=== PATIENT | female | born 1950 | race Caucasian/White ===

== ENCOUNTER → 2021-07-14 15:13 | Outpatient (CLI) | payer MEDICARE, SELFPAY ==
--- NOTE | ~2021-07-14 | XR_ITS ---
XR shoulder RT min 2V DATE: 07/14/2021 15:40 INDICATION: Right shoulder pain TECHNIQUE: 4 views COMPARISON: None FINDINGS: There is diffuse osteopenia. No fracture or dislocation, periosteal reaction or bone destruction. There is calcification at the in sertion site of the rotator cuff which may indicate calcific tendinitis. IMPRESSION: Osteopenia Ossification near insertion of rotator cuff, which may indicate rotator cuff calcific tendinitis Reviewed, dictated and finalized at location A. IMPRESSION: Osteopenia Ossification near insertion of rotator cuff, which may indicate rotator cuff ca lcific tendinitis
== END ==
PROVIDERS: PCP Physician Assistant; Visit Provider Physician Assistant
DX: M85.811 Other specified disorders of bone density and structure, right shoulder (principal)
CPT/HCPCS: 73030

== ENCOUNTER → 2021-08-04 15:20 | Outpatient (CLI) | payer MEDICARE, SELFPAY ==
--- NOTE | ~2021-08-04 | MM_ITS ---
EXAMINATION: MM screening [facility] BI w uriel HISTORY: Screening mammogram TECHNIQUE: Craniocaudal and mediolateral oblique 3-D tomosynthesis images were obtained and synthetic 2-D images were generated. CAD analysis was submitted and interpreted. COMPARISON: 01/07/2011, 06/17/2009 BREAST PARENCHYMAL COMPOSITION: The breasts are almost entirely fatty. FINDINGS: There is no evidence of suspicious mass, calcification, or architectural distortion to sugg est malignancy in either breast. There has been no suspicious interval change. IMPRESSION: 1. No mammographic evidence of malignancy. 2. Recommend routine screening mammography in one year. BI-RADS Category 1: Negative Reviewed, dictated and finalized at location A.
== END ==
PROVIDERS: PCP Physician Assistant; Visit Provider Physician Assistant
DX: Z12.31 Encounter for screening mammogram for malignant neoplasm of breast (principal)
CPT/HCPCS: 77063; 77067

== ENCOUNTER 2021-09-06 10:00 | Emergency (ER) | payer MEDICARE, SELFPAY ==
--- NOTE | 2021-09-06 10:13 | ED.FEMALEGU ---
HPI - Female Genitourinary General Chief complaint: Urogenital-Female Stated complaint: back pain,frequent urination Time Seen by Provider: 09/06/21 10:19 Source: patient, RN notes reviewed and old records reviewed Mode of arrival: ambulatory Limitations: no limitations History of Present Illness HPI Narrative: 70-year-old female who presents to [facility] with complaints of lower back pain with urgency, frequency for the past 1.5 weeks. Patient states that she was treated on August 03 with Cipro for an urinary tract infection. Patient denies any burning or pain with urination or any suprapubic discomfort. Patient denies any fevers, chills or sweats, denies any vaginal discharge or any vaginal itching or odor. She reports that she has not taken any AZO for her symptoms. MD elicited complaint: back pain and other (urgency and frequency of urination) Related Data Home Medications Medication Instructions Recorded Confirmed atorvastatin 20 mg PO DAILY 09/06/21 09/06/21 blood sugar diagnostic [OneTouch 09/06/21 09/06/21 Ultra Test] blood-glucose meter [OneTouch 09/06/21 09/06/21 Ultra2 Meter] glipizide 10 mg PO DAILY 09/06/21 09/06/21 lancets [ebridgeTouch UltraSoft 09/06/21 09/06/21 Lancets] losartan 25 mg PO DAILY 09/06/21 09/06/21 metformin 500 mg PO BID 09/06/21 09/06/21 pen needle, diabetic [Droplet Pen 09/06/21 09/06/21 Needle] Allergies Allergy/AdvReac Type Severity Reaction Status Date / Time No Known Allergies Allergy Verified 09/06/21 10:10 Review of Systems Review of Systems: CONSTITUTIONAL: Denies fever, chills, or sweats. EYES: Denies visual changes, redness, or discharge. ENT: Denies rhinorrhea, congestion, sore throat, or otalgia. CARDIOVASCULAR: Denies chest pain, palpitations, or edema. RESPIRATORY: Denies cough or dyspnea. GASTROINTESTINAL: Denies abdominal pain, nausea, vomiting, or diarrhea. GENITOURINARY:No reported dysuria or hematuria, positive for urinary frequency and urgency SKIN: Denies rash or itching. MUSCULOSKELETAL: positive for Lower back pain, denies any joint pain, or myalgia. NEUROLOGIC: Denies headache, numbness, or weakness. PSYCHIATRIC: Denies anxiety or depression. All systems reviewed & are unremarkable except as noted in HPI and below PMFSH Past Medical History Medical History (Updated 09/07/21 @ 00:02 by Elian Rodriguez) Diabetes Elevated cholesterol Hypertension Surgical History Surgical History (Updated 09/06/21 @ 10:28 by Bertha Celaya NP) H/O arthroscopy of left knee torn meniscus H/O: hysterectomy History of appendectomy Hx of cholecystectomy Family History Family History (Updated 09/06/21 @ 10:44 by Bertha Celaya NP) Mother Hypertension Cerebrovascular accident Brain tumor Sibling Carcinoma of colon Social History Social History (Updated 09/06/21 @ 10:37 by Bertha Celaya NP) Smoking status: Former smoker Additional smoking assessment comments: quit 30 years ago Alcohol intake: current Alcohol use details: rare social Substance use: never Living arrangements: with friend(s) Gender identity (if verbalized by the patient): Female Comments At time of signature, agree with nursing past medical, surgical, social and family history. There is no relevant family history pertinent to the presenting complaint Exam Narrative: GENERAL: Well-appearing, well-nourished, and in no acute distress. HEAD: Normocephalic, atraumatic. EYES: PERRLA and EOMI. ENT: Nares clear, no rhinorrhea or epistaxis. Mucous membranes moist.TM's normal with good light reflex, throat pink with no lesions or exudates, no tonsil enlargement. NECK: Supple. no lymphadenopathy CHEST: Clear to auscultation. No respiratory distress.SAO2 97% on room air HEART: Regular rate and rhythm. No murmur heard. Normal peripheral pulses. ABDOMEN: Soft, nontender to palpation, nondistended, normal active bowel sounds.positive for low back pain EXTREMIT
[2021-09-06 10:22] VITALS: BP 152/84; PULSE 94; RESP 18; TEMP 35.9; O2SAT 97
== END 2021-09-06 10:45 | disposition home or self-care (01) ==
PROVIDERS: Emergency Provider Registered Nurse; PCP Physician Assistant
DX: N39.0 Urinary tract infection, site not specified (principal); M54.50 Low back pain, unspecified; Z87.891 Personal history of nicotine dependence; E11.9 Type 2 diabetes mellitus without complications; E78.00 Pure hypercholesterolemia, unspecified; I10 Essential (primary) hypertension
CPT/HCPCS: 81003; 87086; 87088; 99213; G0463

== ENCOUNTER → 2021-10-22 01:10 | Outpatient (CLI) | payer MEDICARE, SELFPAY ==
[2021-10-22 19:19] LABS: SARS-CoV-2 RNA PCR Negative
== END ==
PROVIDERS: PCP Physician Assistant; Visit Provider Family Medicine
DX: J06.9 Acute upper respiratory infection, unspecified (principal); Z20.822 Contact with and (suspected) exposure to COVID-19
CPT/HCPCS: C9803; U0003; U0005

== ENCOUNTER → 2023-06-30 11:55 | Outpatient (CLI) | payer MEDICARE, SELFPAY ==
--- NOTE | ~2023-06-30 | MM_ITS ---
EXAMINATION: MM screening [facility] BI w uriel HISTORY: Screening mammogram TECHNIQUE: Craniocaudal and mediolateral oblique 3-D tomosynthesis images were obtained and synthetic 2-D images were generated. CAD analysis was submitted and interpreted. COMPARISON: 08/04/2021, 01/07/2011 BREAST PARENCHYMAL COMPOSITION: The breasts are almost entirely fatty. FINDINGS: No suspicious mass, calcification, or architectural distortion are identified in either luh ast to suggest malignancy. There has been no suspicious interval change. IMPRESSION: 1. No mammographic evidence of malignancy. 2. Recommend routine screening mammography in one year. BI-RADS Category 1: Negative Reviewed, dictated and finalized at location B.
== END ==
PROVIDERS: PCP Physician Assistant; Visit Provider Physician Assistant
DX: Z12.31 Encounter for screening mammogram for malignant neoplasm of breast (principal)
CPT/HCPCS: 77063; 77067

== ENCOUNTER 2023-12-25 16:36 | Outpatient (CLI) | payer MEDICARE, SELFPAY ==
--- NOTE | ~2023-12-25 | XR_ITS ---
EXAMINATION: SACRUM/COCCYX DATE: 12/25/2023 16:54 INDICATION: Sacrococcygeal disorder TECHNIQUE: Three views sacrum/coccyx FINDINGS: 10/18/2004 There is no displaced fracture of the sacrum. The coccyx demonstrates overall normal morphology with out acute angulation.There is severe lower lumbar spondylosis partially visualized, with progression since prior study. IMPRESSION: 1. No acute displaced osseous abnormality of the sacrum. Suspicion for occult or nondisplaced sacral fracture can either be evaluated with CT or MRI. 2. Grossly normal morphology to the coccyx without acute angulation. However, due to the wide range of normal variation of the coccyx, acute injury would be best evaluated by clinical examination and patient's symptoms. 3: Severe lower lumbar spondylosis. Reviewed, dictated and finalized at location A. FINISHER SEAMSTRESS
== END 2023-12-25 16:37 | disposition home or self-care (01) ==
LOC: ANHIMG 16:39
PROVIDERS: PCP Family Medicine; Visit Provider Physician Assistant
DX: M53.3 Sacrococcygeal disorders, not elsewhere classified (principal); M47.896 Other spondylosis, lumbar region
CPT/HCPCS: 72220

== ENCOUNTER 2023-12-26 06:01 | Inpatient (IN) | payer MEDICARE, SELFPAY ==
[2023-12-26] VITALS (22 sets, daily range): BP systolic 106–161; BP diastolic 51–89; PULSE 62–101; RESP 13–24; TEMP 36.2–36.7; O2SAT 92–98
--- NOTE | ~2023-12-26 | CT_ITS ---
Non-contrast Head CT History: Status post fall Technique: Axial non-contrast imaging of the brain was performed. Dose reduction technique was used on this scan by utilizing automated exposure control and iterative reconstruction technique. The dose -length product (DLP) was 605.33 mGy-cm. Findings: There is no evidence of intracranial hemorrhage, mass lesion, or acute infarct. Brain par enchyma appears normal. The ventricles and subarachnoid spaces are normal in size. The calvarium ap pears normal. The visualized paranasal sinuses and mastoid air cells are clear. Impression: No significant abnormality seen. Reviewed, dictated and finalized at location . LOADER Impression: No significant abnormality seen.
--- NOTE | ~2023-12-26 | XR_ITS ---
EXAMINATION: XR fluoroscopy no charge INDICATION: L3-4 microdiscectomy TECHNIQUE: A single intraoperative fluoroscopic image is submitted for review. Total fluoroscopic aylin e was 13.3 seconds. COMPARISON: None available FINDINGS: Fluoroscopic image demonstrates surgical instruments posteriorly at the level of L3-4. Plea se refer to procedure note for full details. IMPRESSION: 1. Please refer to procedure note for full details. Reviewed, dictated and finalized at location F. ROPOLOGY DEPARTMENT CHAIR
--- NOTE | ~2023-12-26 | CT_ITS ---
CT Facial Bones and Cervical Spine Clinical Indication: Status post fall Technique: Contiguous axial scans were obtained through the facial bones and cervical spine followed by coronal and sagittal reconstructions. Dose reduction technique was used on this scan by utilizing automated exposure control and iterative reconstruction technique. The dose-length product (DLP) was 654.31 mGy-cm. Findings: CT facial bones: No fractures are identified. The visualized paranasal sinuses are clear. Intraorbita l soft tissues appear normal. CT cervical spine: No fractures or subluxation. There is moderate degenerative disc change throughou t the cervical spine. There are multilevel minimal disc ossify complexes. There is left neural forami nal narrowing at C5-C6. No prevertebral soft tissue swelling. Impression: No fracture is seen in the facial bones. No fracture or subluxation of the cervical spine. Reviewed, dictated and finalized at [facility]. O WELDER Impression: No fracture is seen in the facial bones. No fracture or subluxation of the cervical spine.
--- NOTE | ~2023-12-26 | MR_ITS ---
EXAMINATION: MR lumbar spine wo/w con DATE: 12/27/2023 07:57 INDICATION: Bilateral lower extremity neuropathy and radiculopathy. TECHNIQUE: Magnetic resonance imaging (MRI) of the lumbar spine was performed without and with 17 mL MultiHance intravenous contrast. COMPARISON: Lumbar spine MRI 10/19/2004, CT 12/26/2023 FINDINGS: There is 5 degrees dextrocurvature of lumbar spine. There is mild chronic anterior wedging of T11 and T12 vertebral bodies. There is mildly decreased disc height at L2-L3 and L3-L4 and severel y decreased disc height at L4-L5 and L5-S1. The distal spinal cord signal intensity is normal. The co nus medullaris is at T12-L1. The following disc levels are specifically discussed: L1-L2: The disc is bulging and has an annular fissure. There is severe right and moderate left facet joint osteoarthritis. There is mild right neural foraminal stenosis. There is mild central canal sten osis. L2-L3: The disc is bulging and has an annular fissure. There is severe bilateral facet joint osteoart hritis. There is moderate bilateral neural foraminal stenosis. There is mild central canal stenosis. L3-L4: The disc is bulging with superimposed large left central extrusion with 19 mm inferior extensi on to the infrapedicular level of L4. There is severe bilateral facet joint osteoarthritis. There is mild right and moderate left neural foraminal stenosis. There is severe central canal stenosis. L4-L5: The disc is bulging as an annular fissure. There is severe bilateral facet joint osteoarthriti s. There is mild right and moderate left neural foraminal stenosis. There is mild central canal steno sis. There is moderate stenosis of right lateral recess. L5-S1: The disc is bulging and has an annular fissure. There is severe bilateral facet joint osteoart hritis. There is moderate right and mild left neural foraminal stenosis. There is mild central canal stenosis. IMPRESSION: 1. Severe lumbar spondylosis. Reviewed, dictated and finalized at location A. NEERING SPECIALIST
--- NOTE | ~2023-12-26 | CT_ITS ---
Noncontrast CT scan of the thoracic and lumbar spine CLINICAL HISTORY: Status post fall TECHNIQUE: Axial noncontrast imaging of the thoracic and lumbar spine was performed. Sagittal and cor onal reformatted images were constructed. Dose reduction technique was used on this scan by utilizing automated exposure control and iterative reconstruction technique. The dose-length product (DLP) was 1772.65 mGy-cm. FINDINGS: No fracture or subluxation seen in the thoracic spine. Vertebral bodies maintain normal hei ght and alignment. There are scattered mild degenerative disc changes. No significant disc bulge or h erniation seen. No spinal canal stenosis or cord compression evident. Paravertebral soft tissues are unremarkable. No fracture and 21 spine. There is minimal grade 1 anterolisthesis of L2 over L3, and of L3 over L4. At L1-L2, there is minimal disc bulge and minimal facet arthropathy. No central canal stenosis or def inite neural foraminal narrowing. At L2-L3, there is moderate degenerative disc narrowing. There is mild disc bulge and minimal facet a rthropathy. No definite central canal stenosis. Neural foramina appear preserved. At L3-L4, there is moderate degenerative disc narrowing. Disc bulge and facet arthropathy are present , with mild to possibly moderate central canal stenosis. There is moderate bilateral neural foraminal narrowing. At L4-L5, there is severe degenerative disc narrowing. Disc bulge and facet arthropathy are present, probable mild central canal stenosis. There is severe left neural foraminal narrowing, and moderate t o severe right neural foraminal narrowing. At L5-S1, there is mild disc bulge and mild facet arthropathy. No elliot central canal stenosis. There is severe right neural foraminal narrowing, and mild left neural foraminal narrowing. Paravertebral soft tissues are unremarkable. Impression: No acute fracture. Minimal grade 1 retrolisthesis of L2 over L3, and of L3 over L4. Moderate degenerative spondylosis in the lumbar spine, as detailed above, especially at L3-L4 and L4- L5. Reviewed, dictated and finalized at [facility]. OL GUARD Impression: No acute fracture. Minimal grade 1 retrolisthesis of L2 over L3, and of L3 over L4. Moderate degenerative spondylosis in the lumbar spine, as detailed above, espec ially at L3-L4 and L4-L5.
[2023-12-26] MEDS: ACETAMINOPHEN 500 MG TABLET 1000 MG PO (06:26)
[2023-12-26] MEDS: KETOROLAC 30 MG/ML VIAL (*BKC) IM (08:07)
--- NOTE | 2023-12-26 08:12 | ED.FALL ---
HPI - Fall General Chief Complaint: Fall Stated Complaint: LOW BACK PAIN, FALL, DIFFICULTY AMBULATING Time Seen by Provider: 12/26/23 06:53 History of Present Illness HPI Narrative: 73-year-old female presenting to the emergency department for evaluation after having a ground level fall. Patient is being worked up for sciatica. Patient had [place] and Flexeril last night and when she got out of bed she felt her legs were weak and she had a fall. Patient did strike her chin but patient denies any loss of consciousness. Patient states her legs feel weak but denies any numbness. Patient is intact to sensation and has full range of motion of the legs. Related Data Home Medications Medication Instructions Recorded Confirmed atorvastatin 20 mg tablet 20 mg PO DAILY 09/06/21 12/26/23 blood sugar diagnostic (NeuMedicsTouch 09/06/21 12/25/23 Ultra Test strips) blood-glucose meter (NeuMedicsTouch 09/06/21 12/25/23 Ultra2 Meter) glipizide 10 mg tablet 10 mg PO DAILY 09/06/21 12/26/23 lancets ([employer] UltraSoft 09/06/21 12/25/23 Lancets) pen needle, diabetic 32 gauge x 09/06/21 12/25/23 5/32 (Droplet Pen Needle) citalopram 10 mg tablet 10 mg PO DAILY 12/26/23 12/26/23 dapagliflozin propanediol 10 mg 10 mg PO DAILY 12/26/23 12/26/23 tablet Allergies Allergy/AdvReac Type Severity Reaction Status Date / Time No Known Allergies Allergy Verified 12/25/23 15:54 Review of Systems Review of Systems: All systems reviewed & are unremarkable except as noted in HPI and below PMFSH Past Medical History Medical History (Updated 12/26/23 @ 16:48 by Nichole Diaz PA-C) Depression Hyperlipidemia Hypertension Obesity Type 2 diabetes mellitus Surgical History Surgical History (Updated 12/26/23 @ 16:44 by Nichole Diaz PA-C) History of appendectomy History of arthroscopy of left knee History of back surgery History of cholecystectomy History of hysterectomy Family History Family History Mother Hypertension Cerebrovascular accident Brain tumor Sibling Carcinoma of colon Social History Social History (Updated 12/26/23 @ 16:44 by Nichole Diaz PA-C) Social History: Surrogate medical decision maker: Mary Coates, niece. Code status: Full code. Smoking packs per day: 1 Smoking cigarettes per day: 20.0 Years smoked: 20 Smoking pack-years: 20.00 Smoking status: Former smoker Additional smoking assessment comments: quit 30 years ago Alcohol intake: current Alcohol use details: Rare alcohol use in moderation. Substance use: never Substance use type: does not use Do You Feel Safe in your Home?: Yes Lack of Transportation: No Lack of Food: Never True Current Housing: I Have Housing Concerned About Future Housing: No Difficulty Paying Gas/Electric Bills: No Difficulty Paying for Meds: No Currently Unemployed: No Education: High School Diploma/GED Difficulty w/ Childcare or Family Care: No Living arrangements: with friend(s) Occupation/Education: occupation Spiritual care concerns: No Exam Narrative: APPEARANCE: Uncomfortable appearing HEAD: normocephalic, atraumatic. EYES: PERRLA/EOMI, conjunctivae clear. NOSE: Normal no drainage EARS:TMS clear with good light reflex. THROAT: Pharynx clear, no exudate. NECK: Supple. No adenopathy, no masses. RESPIRATORY: Airway patent, respirations nonlabored. Clear to auscultation bilaterally, no rales, rhonchi, wheezing. CARDIOVASCULAR: Regular rate and rhythm without murmurs rubs or gallops. ABDOMINAL: Soft, nontender, nondistended, normal bowel sounds MUSCULOSKELETAL: Moves all extremities. Strength/ROM intact, No edema, No calf tenderness. NEURO: Intact neurologically to both lower extremities some decreased strength with plantar flexion on the left with no change sensation normal reflexes. No saddle anesthesia and intact rectal tone. Course Co
[2023-12-26] MEDS: HYDROcodone/acetaminophen (*CRX) 5-325 MG TABLET 1 TAB PO ×2 (09:57→21:27)
[2023-12-26] MEDS: CYCLOBENZAPRINE HCL 10 MG TABLET PO (10:14)
[2023-12-26 10:19] LABS: Basophils Percent Auto 0.4 % (0.2-1.2); Eosinophils Absolute Auto 0.1 K/mm3 (0-0.3); Eosinophils Percent Auto 0.8 % (0-4.4); Hematocrit 45.3 % (37.0-47.0); Hemoglobin 14.6 g/dL (12.0-15.0); Immature Granulocyte Absolute 0.02 K/mm3 (0.00-0.031); Immature Granulocyte Percent A 0.2 % (0-0.5); Lymphocytes Absolute Auto 2.26 K/mm3 (0.9-3.2); Lymphocytes Percent Auto 22.7 % (18.3-44.2); Mean Corpuscular HGB Conc 32.2 g/dl (32-36); Mean Corpuscular Hemoglobin 30.2 pg (26-34); Mean Corpuscular Volume 93.8 fl (80-100); Mean Platelet Volume 9.1 fl (7.4-10.4); Monocytes Absolute Auto 0.6 K/mm3 (0.1-0.6); Monocytes Percent Auto 5.5 % (2.6-8.5); Neutrophils Percent Auto 70.4 % (45.5-73.1); Platelet Count Result 181 k/mm3 (150-375); Red Blood Count 4.83 M/mm3 (4.2-5.4); Red Cell Distribution Width 12.6 % (11.5-14.5)
[2023-12-26 10:29] LABS: Alanine Aminotransferase 37 U/L (6-35); Albumin Level 3.9 g/dL (3.5-5.1); Alkaline Phosphatase 86 U/L (38-126); Anion Gap 5 mmol/L (8-16); Aspartate Amino Transferase 32 U/L (14-36); Bilirubin,Total 0.6 mg/dL (0.2-1.3); Blood Urea Nitrogen 14 mg/dL (7-17); Carbon Dioxide 26 mmol/L (22-30); Chloride 106 mmol/L (98-107); Estimated CRCL calculation 82 ml/min; Estimated Glomerular Filt Rate > 60; Glucose 142 mg/dL (65-110); Potassium 3.8 mmol/L (3.4-5.0); Sodium 137 mmol/L (137-145)
[2023-12-26 10:47] LABS: Prothrombin Time 13.4 Seconds (11.1-14.7)
[2023-12-26 10:48] LABS: Partial Thromboplastin Time 29.4 SECONDS (22.3-36.8)
[2023-12-26] MEDS: dexAMETHasone SOD PHOS INJ 10 MG/ML 1 ML VIAL IV PUSH (11:46)
[2023-12-26 14:38] LABS: Appearance Urine Cloudy (Clear); Bacteria Urine 1+ /hpf; Bilirubin Urine Negative (Negative); Blood Urine Negative (Negative); Color Urine Yellow (Yellow); Glucose Urine UA 3+ mg/dL (Negative); Ketones Urine 3+ mg/dL (Negative); Leukocyte Esterase Ur Negative LEU/UL (Negative); Nitrate Urine Negative (Negative); Non Pathogenic Casts 0-2; Protein Urine Negative (Negative); Squamous Epithelial Cell Urine Few /hpf (Few); Urobilinogen Urine 0.2 mg/dL (<2.0); pH Urine 5.5 (5.0-9.0)
[2023-12-26 14:48] LABS: Add Urine Microscopic? YES; Specific Grav Ur 1.045 (1.001-1.035)
--- NOTE | 2023-12-26 15:52 | PC.NURSE ---
standard heart healthy dinner tray ordered at [id number]
--- NOTE | 2023-12-26 16:34 | ADMGEN ---
This patient, Teodora Mckeon, was admitted to [facility] Surg Room 312-01. Patient/family oriented to hospital policies and general routines including ID bracelet, bed and alarms, visiting hours, pain management, procedures, bathroom and other care routines, personal items, smoking policy, room service/diet, and visiting hours. Information on how to activate the Rapid Response Team has been discussed. Patient/Family are encouraged to report perceived risks to care and to ask questions if they do not understand what they are told or what they should do.
--- NOTE | 2023-12-26 16:37 | ADMGEN ---
This patient, Teodora Mckeon, was admitted to [facility] Surg Room 312-01. Patient/family oriented to hospital policies and general routines including ID bracelet, bed and alarms, visiting hours, pain management, procedures, bathroom and other care routines, personal items, smoking policy, room service/diet, and visiting hours. Information on how to activate the Rapid Response Team has been discussed. Patient/Family are encouraged to report perceived risks to care and to ask questions if they do not understand what they are told or what they should do.
--- NOTE | 2023-12-26 16:42 | PM.IMHP ---
H&P: HPI History of Present Illness Date/Time: 12/26/23 17:00 Chief Complaint: Back pain and trouble ambulating after fall. Narrative: This is a 73-year-old female with hypertension, hyperlipidemia, type 2 diabetes mellitus, obesity, and depression who presented to the emergency department via EMS from home for evaluation of low back pain and difficulties ambulating after a ground level fall. The patient provides the following history. She has been having sciatica like symptoms and has been taking [place] and Flexeril at home for her symptoms. Last night when getting out of bed she felt as though her legs were weak her back pain was so severe and she fell forward, striking her chin on the night table. She has had worsening back pain (mid low back pain described as sharp and shooting, worse with movement) and difficulties ambulating since that time due to the pain. She denies syncope, near syncope, chest and pleuritic pain, shortness the of breath, nausea, vomiting, diarrhea, urinary retention, bladder incontinence, saddle anesthesia, and numbness of the lower extremities. She also denies vertigo, facial droop, and difficulty speaking and swallowing. She has had some increase in urinary frequency and mild dysuria however denies hematuria. In the ED: Vital signs were stable on arrival. Thoracic and lumbar spine CT showed no acute fractures, degenerative changes with spondylosis especially at L3-L4 and L4-L5,, and minimal grade 1 retrolisthesis of L2 over L3 and of L3 over L4. X-ray of the sacrum and coccyx showed no acute displaced is osseous abnormalities and severe lower lumbar spondylosis. She had difficulties ambulating in the emergency department due to pain and subjective weakness and she is being admitted for neurosurgery consultation and supportive care. Review of Systems Review of Systems: Twelve systems were reviewed and are negative except for as per HPI. [facility] Past Medical History Medical History (Updated 12/26/23 @ 16:48 by Nichole Diaz PA-C) Depression Hyperlipidemia Hypertension Obesity Type 2 diabetes mellitus Surgical History Surgical History (Updated 12/26/23 @ 16:44 by Nichole Diaz PA-C) History of appendectomy History of arthroscopy of left knee History of back surgery History of cholecystectomy History of hysterectomy Family History Family History Mother Hypertension Cerebrovascular accident Brain tumor Sibling Carcinoma of colon Social History Social History (Updated 12/26/23 @ 16:44 by Nichole Diaz PA-C) Social History: Surrogate medical decision maker: Mary Coates, niece. Code status: Full code. Smoking packs per day: 1 Smoking cigarettes per day: 20.0 Years smoked: 20 Smoking pack-years: 20.00 Smoking status: Former smoker Additional smoking assessment comments: quit 30 years ago Alcohol intake: current Alcohol use details: Rare alcohol use in moderation. Substance use: never Substance use type: does not use Do You Feel Safe in your Home?: Yes Lack of Transportation: No Lack of Food: Never True Current Housing: I Have Housing Concerned About Future Housing: No Difficulty Paying Gas/Electric Bills: No Difficulty Paying for Meds: No Currently Unemployed: No Education: High School Diploma/GED Difficulty w/ Childcare or Family Care: No Living arrangements: with friend(s) Occupation/Education: occupation Spiritual care concerns: No Meds Home Medications and Allergies Home Medications Medication Instructions Recorded Confirmed Type atorvastatin 20 mg tablet 20 mg PO DAILY 09/06/21 12/26/23 History blood sugar diagnostic (OneTouch 09/06/21 12/25/23 History Ultra Test strips) blood-glucose meter (OneTouch 09/06/21 12/25/23 History Ultra2 Meter) glipizide 10 mg tablet 10 mg PO DAILY 09/06/21 12/26/23 History lancets (OneTouch UltraSoft 09/06/21
[2023-12-26 16:43] LABS: Glucose Point of Care 163 mg/dl (65-105)
[2023-12-26 19:58] LABS: Glucose Point of Care 296 mg/dl (65-105)
[2023-12-26] MEDS: INSULIN ASPART (*BKC) 100 UNITS/ML SUB-Q (20:17)
[2023-12-27] VITALS (13 sets, daily range): BP systolic 124–158; BP diastolic 64–86; PULSE 64–108; RESP 10–18; TEMP 36.2–37.2; O2SAT 93–100
[2023-12-27] MEDS: HYDROcodone/acetaminophen (*CRX) 5-325 MG TABLET 1 TAB PO (03:53)
[2023-12-27 07:13] LABS: Anion Gap 4 mmol/L (8-16); Blood Urea Nitrogen 18 mg/dL (7-17); Calcium 9.3 mg/dL (8.4-10.2); Carbon Dioxide 28 mmol/L (22-30); Chloride 102 mmol/L (98-107); Estimated CRCL calculation 79 ml/min; Estimated Glomerular Filt Rate > 60; Glucose 177 mg/dL (65-110); Magnesium 1.9 mg/dL (1.6-2.3); Potassium 4.3 mmol/L (3.4-5.0); Sodium 134 mmol/L (137-145)
[2023-12-27 07:26] LABS: Glucose Point of Care 176 mg/dl (65-105)
[2023-12-27] MEDS: ENOXAPARIN 40 MG/0.4 ML SYRINGE SUB-Q (09:41)
--- NOTE | 2023-12-27 11:30 | WPDNEUROSGCN ---
Assessment and Plan Assessment and plan (1) Herniated nucleus pulposus, lumbar: Code(s): M51.26 - Other intervertebral disc displacement, lumbar region Status: Acute (2) Lumbar spondylosis: Code(s): M47.816 - Spondylosis without myelopathy or radiculopathy, lumbar region Status: Acute (3) Left leg weakness: Code(s): R29.898 - Other symptoms and signs involving the musculoskeletal system Status: Acute Assessment and Plan: Patient is a pleasant 73-year-old female with prior left L4 laminotomy done several years ago at [employer], who presented acutely this morning after attempting to stand up while getting out of bed and collapsed due to her legs feeling numb and weak. She has a history of having chronic low back pain and states her back pain became severe approximately 1 week ago without inciting event or trauma. Lumbar MRI shows a large left paracentral disc herniation at L3-4 with inferior migration causing severe lateral stenosis and central stenosis due to superimposing lumbar spondylosis from facet hypertrophy and thickened ligamentum flavum. On exam the patient is found to have left distal weakness with a left footdrop and also weakness in her left gastroc. Patient denies any saddle anesthesia but does have a sense that she is not fully emptying her bladder when urinating. Recommend: - post-void bladder scan to eval for urinary retention - Will discuss case further with my Attending Dr. Yoder's, suspect patient will need surgical intervention but does not need this emergently as long as patient has control of her bladder and bowel function. Consult date: 12/27/23 Time Seen: 11:00 HPI: Teodora Mckeon is a 73 year old female with PMHx of DM, HTN, HLD, Obesity who presented to [facility] this am after falling while attempting to stand up from bed and use the restroom early this am. She states I couldn't feel my feet . She also reports a sense of weakness in both lower legs, left greater than right, that is new for her today as well. She gives a history for having chronic low back pain, even a prior spinal surgery many years ago , she believes this was at [facility] and she is unsure on the surgeon. She admits to on and off low back pain however approximately 1 week ago she had an increase in her pain without inciting event, and states she was not able to lift grandchildren that were visiting her 6 days ago. Most of her discomfort is in the waistline region and radiates into bilateral buttocks. She denies any radiating leg symptoms,nor any sudden onset of severe back pain, but states it has gradually worsened over the course of about 1 week. She was seen in her PCPs office 2 days ago for her pain pain complaints. Patient denies having any prior weakness in her lower extremities. She also denies any bladder or bowel incontinence, but does states she is having hard time telling if she is fully emptying her bladder while using the bed pain since her admission this morning. The patient had CT of her lumbar spine performed on this hospitalization as well as more recently a lumbar MRI study. Review of Systems Review of Systems: All systems reviewed & are unremarkable except as noted in HPI and below PMFSH Past Medical History Medical History (Updated 12/27/23 @ 12:54 by Maribeth Dugan PA-C) Depression Hyperlipidemia Hypertension Obesity Type 2 diabetes mellitus Surgical History Surgical History (Updated 12/26/23 @ 16:44 by Nichole Diaz PA-C) History of appendectomy History of arthroscopy of left knee History of back surgery History of cholecystectomy History of hysterectomy Family History Family History Mother Hypertension Cerebrovascular accident Brain tumor Sibling Carcinoma of colon Social History Social History (Updated 12/26/23 @ 16:44 by Nichole Diaz PA-C) Social H
[2023-12-27 11:34] LABS: Glucose Point of Care 221 mg/dl (65-105)
[2023-12-27 13:12] LABS: Appearance Urine Cloudy (Clear); Bacteria Urine None Seen /hpf; Bilirubin Urine Negative (Negative); Blood Urine Negative (Negative); Budding Yeast Urine Present /hpf; Color Urine Yellow (Yellow); Glucose Urine UA 3+ mg/dL (Negative); Ketones Urine 3+ mg/dL (Negative); Leukocyte Esterase Ur Negative LEU/UL (NEGATIVE); Nitrate Urine Negative (Negative); Non Pathogenic Casts 0-2; Protein Urine Negative (Negative); Specific Grav Ur 1.032 (1.001-1.035); Squamous Epithelial Cell Urine None seen /hpf (Few); Urobilinogen Urine 0.2 mg/dL (<2.0); WBC Urine 0-5 /hpf (0-3); pH Urine 5.5 (5.0-9.0)
[2023-12-27 13:20] LABS: Add Urine Microscopic? YES
--- NOTE | 2023-12-27 14:05 | PC.NURSE ---
To OR per hospital bed.
--- NOTE | 2023-12-27 14:21 | WPDANESEPPF ---
Anes - Initial Pre Proc Eval Procedure: Operation Date: 12/27/23 14:30 Proposed Procedures p Left L3-4 Microdiscectomy - Matias Lira MD Date/Time: 12/27/23 14:21 Surgeon: Arnol Hays MD Pre Op Diagnosis: back pain,leg weakness Patient Data Age: 73 Gender: F Height: 1.52 m Weight: 81.3 kg Last Vital Signs Temp 37.0 C 12/27/23 13:54 Pulse 76 12/27/23 13:54 Resp 18 12/27/23 13:54 BP 147/65 H 12/27/23 13:54 Pulse Ox 96 12/27/23 13:54 O2 Del Method Room Air 12/27/23 08:37 Allergies Allergy/AdvReac Type Severity Reaction Status Date / Time No Known Allergies Allergy Verified 12/25/23 15:54 Home Medications Medication Instructions Recorded Confirmed Type atorvastatin 20 mg tablet 20 mg PO DAILY 09/06/21 12/26/23 History [facility] 12/25/23 History Ultra Test strips) blood-glucose meter [facility]21 12/25/23 History Ultra2 Meter) glipizide 10 mg tablet 10 mg PO DAILY 09/06/21 12/26/23 History lancets ([employer] UltraSoft 09/06/21 12/25/23 History Lancets) pen needle, diabetic 32 gauge x 09/06/21 12/25/23 History 5/32 (Droplet Pen Needle) losartan 100 mg tablet 100 mg PO DAILY #30 tabs 04/03/23 12/26/23 Rx amlodipine 5 mg tablet 5 mg PO DAILY #30 tabs 10/06/23 12/26/23 Rx cyclobenzaprine 10 mg tablet 10 mg PO TID PRN muscle spasm #30 12/25/23 12/26/23 Rx tabs hydrocodone 5 mg-acetaminophen 325 1 tablet PO Q6H PRN pain 7 days 12/25/23 12/26/23 Rx mg tablet #28 tabs citalopram 10 mg tablet 10 mg PO DAILY 12/26/23 12/26/23 History dapagliflozin propanediol 10 mg 10 mg PO DAILY 12/26/23 12/26/23 History tablet Laboratory Tests 12/26/23 12/26/23 12/26/23 14:30 16:40 19:38 Sodium Potassium Chloride Carbon Dioxide Anion Gap BUN Creatinine Estim Creat Clear Calc Estimated GFR Glucose POC Capillary Glucose 163 H mg/dl 296 H mg/dl (65-105) (65-105) Calcium Magnesium Urine Color Yellow (Yellow) Urine Appearance Cloudy H (Clear) Urine pH 5.5 (5.0-9.0) Ur Specific [place] 1.045 H (1.001-1.035) Urine Protein Negative mg/dL (Negative) Urine Glucose (UA) 3+ H mg/dL (Negative) Urine Ketones 3+ H mg/dL (Negative) Ur Blood (Man) Negative (Negative) Urine Nitrate Negative (Negative) Urine Bilirubin Negative (Negative) Urine Urobilinogen 0.2 mg/dL (<2.0) Ur Leukocyte Esterase Leukocyte Esterase Rfl Negative AYALA/UL (Negative) Urine RBC 3-5 H /hpf (0-2) Urine WBC 6-10 H /hpf Ur Squamous Epith Cells Few /hpf (Few) Urine Bacteria 1+ H /hpf Urine Casts 0-2 Urine Yeast (Budding) 12/27/23 12/27/23 12/27/23 06:09 07:14 11:31 Sodium 134 L mmol/L (137-145) Potassium 4.3 mmol/L (3.4-5.0) Chloride 102 mmol/L (98-107) Carbon Dioxide 28 mmol/L (22-30) Anion Gap 4 L mmol/L (8-16) BUN 18 H mg/dL (7-17) Creatinine 0.50 L mg/dL (0.7-1.0) Estim Creat Clear Calc 79 ml/min Estimated GFR > 60 (59 - ) Glucose 177 H mg/dL (65-110) POC Capillary Glucose 176 H mg/dl 221 H mg/dl (65-105) (65-105) Calcium 9.3 mg/dL (8.4-10.2) Magnesium 1.9 mg/dL (1.6-2.3) Urine Color Urine Appearance Urine pH Ur Specific [place] Urine Protein Urine Glucose (UA) Urine Ketones Ur Blood (Man) Urine Nitrate Urine Bilirubin Urine Urobilinogen Ur Leukocyte Esterase Leukocyte
[2023-12-27] MEDS: LACTATED RINGERS 1,000 ML 30 ML IV CONT ×2 (14:30→17:48)
--- NOTE | 2023-12-27 14:36 | WPDHPUPDATE1 ---
History and Physical Update Update Date/Time: 12/27/23 14:36 History and Physical has been reviewed, including an updated exam of the patient. There are NO changes in the patient's condition. Risks, benefits, and alternatives have been discussed and questions answered. Patient agrees to proceed with procedure. The patient has a very large Left L3-4 disc herniation causing severe central canal stenosis Patient has n/t in both legs, urinary retention, and a new acute left foot drop. OR: L3 laminectomy for left L3-4 microdiscectomy
[2023-12-27 14:43] LABS: Glucose Point of Care 161 mg/dl (65-105)
--- NOTE | 2023-12-27 14:43 | PM.IMPN ---
Progress Note: A&P Assessment and Plan (1) Ground-level fall: Code(s): W18.30XA - Fall on same level, unspecified, initial encounter Status: Acute Assessment and Plan: Patient had a fall due to progressive lower extremity numbness and tingling. She was unable to ambulate safely in the emergency department and is being admitted for supportive care and neurosurgery consultation. Symptoms seem to be due to lumbar strain or sciatic up. Analgesics available as needed. CT of the thoracic and lumbar spine showing moderate degenerative spondylosis especially in L3-L4 and L4-L5 MRI of the lumbar spine showing severe spondylosis and severely decreased disc height at L4-L5 and L5-S1 Neurosurgery consulted. (2) Back pain: Code(s): M54.9 - Dorsalgia, unspecified Status: Acute Assessment and Plan: See above. MRI of the lumbar spine showing severe spondylosis and severely decreased disc height at L4-L5 and L5-S1 (3) Weakness: Code(s): R53.1 - Weakness Status: Acute Assessment and Plan: See above (4) Type 2 diabetes mellitus: Code(s): E11.9 - Type 2 diabetes mellitus without complications Status: Acute Assessment and Plan: Insulin Lispro sliding scale, Accu-checks qAc and HS and Hold oral hypoglycemics Initiate hypoglycemic precautions (5) Hypertension: Code(s): I10 - Essential (primary) hypertension Status: Acute Assessment and Plan: continue home medication (6) Depression: Code(s): F32.A - Depression, unspecified Status: Acute Assessment and Plan: continue home medication Subjective Date/time seen: 12/27/23 14:43 Interval history: patient having mid distal left low lumbar/ sacral pain. Discussed PA in Neurosurgery in due to patient's diabetes they are not wanting to start on steroids right away. She plans discussed attending physician. Patient states that she has numbness and tingling in bilateral lower extremities worse on the left. She has decreased sensation in the left foot as well. decreased movement in toes. Exam Narrative: GENERAL: Comfortable, no acute distress HENMT: moist mucous membranes EYES: EOM intact b/l NECK: no lymphadenopathy RESPIRATORY: clear to auscultation CARDIO: RRR GI: soft, nontender, bowel sounds present SKIN: no rashes EXTREMITIES: decreased sensation the left foot 0-5 strength in the left foot and 3/5 in the right. No Babinski sign. Objective Data Vital Signs Vital Signs: Vital Signs - 24 hr 12/26/23 14:46 12/26/23 15:16 12/26/23 16:17 Temperature 97.8 F 97.9 F 98.0 F Pulse Rate 69 73 101 H Respiratory Rate 15 16 19 Blood Pressure 145/74 H 148/70 H 106/78 Pulse Oximetry 96 96 97 Oxygen Delivery 12/26/23 21:30 12/27/23 06:00 12/27/23 08:37 Temperature 97.2 F L 97.9 F Pulse Rate 75 64 Respiratory Rate 13 14 Blood Pressure 143/65 H 140/67 Pulse Oximetry 97 99 95 Oxygen Delivery Room Air 12/27/23 08:00 12/27/23 13:54 Temperature 98.6 F Pulse Rate 76 Respiratory Rate 18 Blood Pressure 147/65 H Pulse Oximetry 96 Oxygen Delivery Room Air Intake/Output Intake/Output: Intake & Output 12/24/23 12/25/23 12/26/23 12/27/23 23:59 23:59 23:59 23:59 Intake Total 590 1040 Output Total 200 600 Balance 390 440 Meds/Results Medications: Active Medications Generic Name Dose Route Start Last Admin Trade Name Freq PRN Reason Stop Dose Admin Acetaminophen 650 mg 12/26/23 16:56 Acetaminophen 325 Mg Tablet PO Q6H PRN Mild Pain (1-3) or Fever Hydrocodone Bitart/Acetaminophen 1 tab 12/26/23 16:57 12/27/23 03:53 Hydrocodone/Acetaminophen (*Crx) 5-325 Mg Tablet PO 1 tab Q6H PRN Administration Pain Rated 4-6 Cyclobenzaprine HCl 5 mg 12/26/23 16:56 Cyclobenzaprine Hcl 5 Mg Tablet PO Q8H PRN Muscle Spasm Dextrose 12.5 gm 12/26/23 16:57 Dextrose
[2023-12-27] MEDS: ceFAZolin 2 GM/D5W 50 ML 2 GM/50 ML BAG IVPB (14:49)
[2023-12-27] MEDS: BUPIVACAINE/EPINEPHRINE 0.5% 30 ML VIAL 10 ML INFILTRATE (15:40)
[2023-12-27] MEDS: ceFAZolin SODIUM 1 GM VIAL IRRIGATION (17:04)
[2023-12-27] MEDS: VANCOMYCIN HCL 1,000 MG VIAL 1000 MG TOPICAL (17:23)
--- NOTE | 2023-12-27 17:36 | W.PM.PROC2 ---
Procedure Note - Detailed Date of Procedure 12/27/23 Pre-op Diagnosis 1. Cauda Equina 2. Severe L3-4 Central Stenosis 3. Left Foot drop 4. Large Left L3-4 disc herniation Post-op Diagnosis Same Procedure Performed 1. Inferior bilateral L3 laminectomy 2. Superior Bilateral L4 laminectomy 3. Left L3-4 Microdiscectomy Surgeon Matias Lira MD Labor Supervisor JOANNA Callaway Anesthesia General Indications Mrs. Teodora Mckeon is a 73 y/o with PMH of DM, obesity, and previous left L4 laminectomy 20 years ago who presented to the ED last night due to numbness and tingling in the b/l legs that started yesterday. She came to the ED due to the inability to walk. She also had an acute onset of left footdrop. Once here on the floor, she also had urinary retention requiring a sauer catheter to be placed. MRI lumbar done today showed a very large Left L3-4 disc herniation completely obliterating the central canal causing severe central canal stenosis at L3-4. Findings 1. Severe central canal stenosis at L3-4 2. scar on the left from previous left L4 laminectomy 3. Very large soft disc herniation in the axilla of the left L4 nerve root causing severe compression of the left L4 nerve root and severe central canal stenosis Description of Procedure The patient was brought into the OR. She was intubated on his cart by anesthesia. Appropriate IVs had already been placed. The patient was flipped prone onto a Rodo frame sitting on an open Frantz table. All pressure points were padded. Eyes were free. The incision was marked using xrays at the L3-4 level. We had to incorporate a small amount of the previous incision from L4-5 from 20 years ago. The lumbar area was prepped and draped in sterile fashion. Using a 10 blade, the skin was opened. We then using a bovie got down to the lumbar fascia . There was some scar tissue present. We then opened the fascia and dissected down on the patient's left and right side. Using bovie, we exposed the left L3 lamina and expose the top of the left L4 lamina. There was obvious scar from his previous left L4-5 discectomy. We tried to stay above the previous level and out of the scar. I also opened up the right side, because of the large size of the disc herniation. I wanted to do a full bilateral L3 laminectomy in order to decompress the central canal. The right L3 and L4 lamina were exposed. I placed a curette under the left L3 lamina to confirm that we were at the correct level. An xray was done that confirmed we were at the L3-4 level on the left side. We then placed the Nicholson retractor in. We then brought in the operative microscope into the sterile field. Under microscope we started our full laminectomy at L3-4. Using a Leksell, I removed the L3 spinous process and the L4 spinous process. I knew I had to get down to the L4 pedicle, because per the MRI the disc goes down to the level of the L4 pedicle. Using a high speed drill, I thinned down the inferior apsect of the L3 lamina until egg shell thin as well as the superior aspect of the bilateral L4 lamina. Then using curettes and a kerrison punch, I removed the inferior L3 lamina and superior aspect of the L4 lamina to expose the underlying ligamentum flavum. We then removed the ligamentum flavum in piecemeal fashion to expose the thecal sac and the traversing left L4 nerve root. When decompressing the left L3-4 lateral recess, the medial left L3-4 facet came off, most likely from bone removal from the previous surgery. We made sure to stay away from the right L3-4 facet. We decompressed the right L3-4 lateral recess with a kerrison. The central canal was now decompressed. Under microscope, we identified a very large disc herniation that was within the axilla of the left L4 nerve root. Using a #8 Rhoton, I was able to dissect the thecal sac off the large disc herniation. This disc was also severely adherent to the traversing left L4 nerve root. With a small micro nerve hook, I was
[2023-12-27 18:02] LABS: Glucose Point of Care 171 mg/dl (65-105)
[2023-12-27] MEDS: HYDROmorphone HCL INJ (*CRX) 1 MG/ML SYR 0.5 MG IV PUSH (20:46)
[2023-12-27] MEDS: SENNA/DOCUSATE SODIUM TABLET 1 TAB PO (20:46)
[2023-12-27] MEDS: methocarbamoL 750 MG TABLET PO (21:01)
[2023-12-27 22:01] LABS: Glucose Point of Care 175 mg/dl (65-105)
[2023-12-28 00:43] VITALS: BP 108/48; PULSE 92; RESP 14; TEMP 36.1; O2SAT 94
[2023-12-28] MEDS: HYDROmorphone HCL INJ (*CRX) 1 MG/ML SYR 0.5 MG IV PUSH ×2 (02:37→08:45)
[2023-12-28 06:00] VITALS: BP 112/50; PULSE 96; RESP 13; TEMP 36.3; O2SAT 95
[2023-12-28 08:08] LABS: Glucose Point of Care 160 mg/dl (65-105)
[2023-12-28 08:42] VITALS: BP 142/59; PULSE 90; O2SAT 97
[2023-12-28] MEDS: glipiZIDE 5 MG TABLET 10 MG PO (08:44)
[2023-12-28] MEDS: CITALOPRAM HYDROBROMIDE 10 MG TABLET PO (08:44)
[2023-12-28] MEDS: LOSARTAN POTASSIUM 100 MG TABLET PO (08:44)
[2023-12-28] MEDS: amLODIPine BESYLATE 5 MG TABLET PO (08:45)
[2023-12-28] MEDS: ATORVASTATIN 20 MG TABLET PO (08:45)
[2023-12-28] MEDS: EMPAGLIFLOZIN 25 MG TABLET PO (08:45)
[2023-12-28] MEDS: methocarbamoL 750 MG TABLET PO ×3 (08:45→17:29)
[2023-12-28] MEDS: HYDROcodone/acetaminophen (*CRX) 5-325 MG TABLET 1 TAB PO ×2 (11:13→23:01)
[2023-12-28 11:56] LABS: Glucose Point of Care 194 mg/dl (65-105)
--- NOTE | 2023-12-28 12:43 | WPDNEUROSGPN ---
Progress Note: A&P Assessment and Plan (1) Status post lumbar microdiscectomy: Code(s): Z98.890 - Other specified postprocedural states Status: Acute (2) Left leg weakness: Code(s): R29.898 - Other symptoms and signs involving the musculoskeletal system Status: Acute Plan s/p L3-4 laminectomy and diskectomy on 12/27 Plan: -Remove sauer catheter today -Ok to start DVT ppx tonight -She should be up to a chair during the day and working with PT/OT; she may ultimately need inpatient rehab -Ok to shower and get incision wet with soap and water starting tomorrow Subjective Date/time seen: 12/28/23 12:43 Interval history: Complaining of excruciating back pain but no radicular leg pain. She thinks the numbness and weakness in her left foot are about the same. She has not been out of bed yet. Review of Systems Review of Systems: All systems reviewed & are unremarkable except as noted in HPI and below Exam Narrative: Lumbar dressing dry and intact Right leg essentially full strength, although proximal strength is limited by back pain Left leg 1/5 dorsiflexion, 1/5 plantar flexion, 2/5 EHL, otherwise full Decreased sensation to light touch in distal left leg Objective Data Vital Signs Vital Signs: Vital Signs - 24 hr 12/27/23 13:54 12/27/23 14:00 12/27/23 17:48 Temperature 98.6 F 97.7 F 98.9 F Pulse Rate 76 76 108 H Respiratory Rate 18 16 10 L Blood Pressure 147/65 H 135/64 158/86 H Pulse Oximetry 96 96 100 Oxygen Delivery Room Air Simple Face Mask Oxygen Flow Rate 10 12/27/23 18:00 12/27/23 18:15 12/27/23 18:30 Temperature Pulse Rate 104 H 99 98 Respiratory Rate 13 15 15 Blood Pressure 130/72 152/73 H 138/68 Pulse Oximetry 96 96 97 Oxygen Delivery Room Air Room Air Room Air Oxygen Flow Rate 12/27/23 18:45 12/27/23 19:20 12/27/23 20:00 Temperature 97.1 F L Pulse Rate 96 99 Respiratory Rate 16 17 Blood Pressure 141/68 H 127/64 Pulse Oximetry 98 97 97 Oxygen Delivery Room Air Room Air Oxygen Flow Rate 12/27/23 19:45 12/27/23 20:45 12/28/23 00:43 Temperature 97.5 F L 97.4 F L 96.9 F L Pulse Rate 98 98 92 Respiratory Rate 14 14 14 Blood Pressure 124/66 124/66 108/48 L Pulse Oximetry 93 93 94 Oxygen Delivery Oxygen Flow Rate 12/28/23 06:00 12/28/23 08:42 12/28/23 08:45 Temperature 97.4 F L Pulse Rate 96 90 Respiratory Rate 13 Blood Pressure 112/50 L 142/59 H Pulse Oximetry 95 97 Oxygen Delivery Room Air Oxygen Flow Rate Intake/Output Intake/Output: Intake & Output 12/25/23 12/26/23 12/27/23 12/28/23 23:59 23:59 23:59 23:59 Intake Total 590 1390 814 Output Total 200 1730 500 Balance 390 -340 314 Meds/Results Medications: Active Medications Generic Name Dose Route Start Last Admin Trade Name Freq PRN Reason Stop Dose Admin Acetaminophen 650 mg 12/26/23 16:56 Acetaminophen 325 Mg Tablet PO Q6H PRN Mild Pain (1-3) or Fever Hydrocodone Bitart/Acetaminophen 1 tab 12/26/23 16:57 12/28/23 11:13 Hydrocodone/Acetaminophen (*Crx) 5-325 Mg Tablet PO 1 tab Q6H PRN Administration Pain Rated 4-6 Hydrocodone Bitart/Acetaminophen 1 tab 12/27/23 18:01 Hydrocodone/Acetaminophen (*Crx) 5-325 Mg Tablet PO Q6H PRN PAIN RATED 4-6 Amlodipine Besylate 5 mg 12/27/23 14:55 12/28/23 08:45 Amlodipine Besylate 5 Mg Tablet PO 5 mg DAILY OSITO Administration Atorvastatin Calcium 20 mg 12/28/23 09:00 12/28/23 08:45 Atorvastatin 20 Mg Tablet PO 20 mg DAILY OSITO Administration Citalopram Hydrobromide 10 mg 12/27/23 14:55 12/28/23 08:44 Citalopram Hydrobromide 10 Mg Tablet PO 10 mg DAILY OSITO Administration Empagliflozin 25 mg 12/28/23 09:00 12/28/23 08:45 Empagliflozin 25 Mg Tablet PO 25 mg DAILY OSITO Administration Glipizide 10 mg 12/28/23 09:00 12/28/23 08:44 Glipizide 5 Mg Tablet PO 10 mg DAILY OSITO Administration Glucago
--- NOTE | 2023-12-28 13:07 | WPDANESPN ---
Anes - Prog Note Post-Op Date/Time: 12/28/23 13:07 Cardiovascular status: normal Respiratory status: normal Airway patency: baseline Mental status: baseline Post-Op hydration status: normal Vital Signs: Last Vital Signs Temp 36.3 C L 12/28/23 06:00 Pulse 90 12/28/23 08:42 Resp 13 12/28/23 06:00 BP 142/59 H 12/28/23 08:42 Pulse Ox 97 12/28/23 08:42 O2 Del Method Room Air 12/28/23 08:45 O2 Flow Rate 10 12/27/23 17:48 Pain Score (VAS): 5 I/O: Intake & Output 12/27/23 12/28/23 12/28/23 23:59 07:59 15:59 Intake Total 300 750 64 Output Total 680 500 Balance -380 250 64 Laboratory Tests 12/26/23 10:12 12/27/23 06:09 12/27/23 12/27/23 12/27/23 11:55 14:40 18:00 POC Capillary Glucose 161 H 171 H Urine Color Yellow Urine Appearance Cloudy H Urine pH 5.5 Ur Specific [place] 1.032 Urine Protein Negative Urine Glucose (UA) 3+ H Urine Ketones 3+ H Ur Blood (Man) Negative Urine Nitrate Negative Urine Bilirubin Negative Urine Urobilinogen 0.2 Ur Leukocyte Esterase Negative Urine RBC 11-20 H Urine WBC 0-5 Ur Squamous Epith Cells None seen Urine Bacteria None seen Urine Casts 0-2 Urine Yeast (Budding) Present H 12/27/23 12/28/23 12/28/23 20:32 07:57 11:28 POC Capillary Glucose 175 H 160 H 194 H Urine Color Urine Appearance Urine pH Ur Specific [place] Urine Protein Urine Glucose (UA) Urine Ketones Ur Blood (Man) Urine Nitrate Urine Bilirubin Urine Urobilinogen Ur Leukocyte Esterase Urine RBC Urine WBC Ur Squamous Epith Cells Urine Bacteria Urine Casts Urine Yeast (Budding) Microbiology 12/26/23 14:30 Urine Clean Catch Urine Culture - Final Post-procedural complaints: none Patient Feedback: Patient satisfied with anesthetic care.
--- NOTE | 2023-12-28 13:25 | PM.IMPN ---
Progress Note: A&P Assessment and Plan (1) Ground-level fall: Code(s): W18.30XA - Fall on same level, unspecified, initial encounter Status: Acute Assessment and Plan: Patient had a fall due to progressive lower extremity numbness and tingling. She was unable to ambulate safely in the emergency department and is being admitted for supportive care and neurosurgery consultation. Symptoms seem to be due to lumbar strain or sciatic up. Analgesics available as needed. CT of the thoracic and lumbar spine showing moderate degenerative spondylosis especially in L3-L4 and L4-L5 MRI of the lumbar spine showing severe spondylosis and severely decreased disc height at L4-L5 and L5-S1 Neurosurgery consulted. POD 1: L3 and L4 laminectomy and L3-L4 microdiscectomy (2) Back pain: Code(s): M54.9 - Dorsalgia, unspecified Status: Acute Assessment and Plan: See above. MRI of the lumbar spine showing severe spondylosis and severely decreased disc height at L4-L5 and L5-S1. Increased severity in back pain postoperatively. (3) Weakness: Code(s): R53.1 - Weakness Status: Acute Assessment and Plan: See above. (4) Type 2 diabetes mellitus: Code(s): E11.9 - Type 2 diabetes mellitus without complications Status: Acute Assessment and Plan: Insulin Lispro sliding scale, Accu-checks qAc and HS and Hold oral hypoglycemics Initiate hypoglycemic precautions (5) Hypertension: Code(s): I10 - Essential (primary) hypertension Status: Acute Assessment and Plan: continue home medication (6) Depression: Code(s): F32.A - Depression, unspecified Status: Acute Assessment and Plan: continue home medication Subjective Date/time seen: 12/28/23 13:25 Interval history: patient is in a significant amount of pain at the surgical site. She has severely decreased mobility and has not been out of bed. Encourage her to do PT and OT. Analgesics as needed. Per neurosurgery will start DVT prophylaxis tonight. Recommending SNF/[facility] for the patient. Exam Narrative: GENERAL: Comfortable, no acute distress HENMT: moist mucous membranes EYES: EOM intact b/l NECK: no lymphadenopathy RESPIRATORY: clear to auscultation CARDIO: RRR GI: soft, nontender, bowel sounds present SKIN: no rashes EXTREMITIES: decreased sensation the left foot 0-5 strength in the left foot and 3/5 in the right. No Babinski sign. Objective Data Vital Signs Vital Signs: Vital Signs - 24 hr 12/27/23 13:54 12/27/23 14:00 12/27/23 17:48 Temperature 98.6 F 97.7 F 98.9 F Pulse Rate 76 76 108 H Respiratory Rate 18 16 10 L Blood Pressure 147/65 H 135/64 158/86 H Pulse Oximetry 96 96 100 Oxygen Delivery Room Air Simple Face Mask Oxygen Flow Rate 10 12/27/23 18:00 12/27/23 18:15 12/27/23 18:30 Temperature Pulse Rate 104 H 99 98 Respiratory Rate 13 15 15 Blood Pressure 130/72 152/73 H 138/68 Pulse Oximetry 96 96 97 Oxygen Delivery Room Air Room Air Room Air Oxygen Flow Rate 12/27/23 18:45 12/27/23 19:20 12/27/23 20:00 Temperature 97.1 F L Pulse Rate 96 99 Respiratory Rate 16 17 Blood Pressure 141/68 H 127/64 Pulse Oximetry 98 97 97 Oxygen Delivery Room Air Room Air Oxygen Flow Rate 12/27/23 19:45 12/27/23 20:45 12/28/23 00:43 Temperature 97.5 F L 97.4 F L 96.9 F L Pulse Rate 98 98 92 Respiratory Rate 14 14 14 Blood Pressure 124/66 124/66 108/48 L Pulse Oximetry 93 93 94 Oxygen Delivery Oxygen Flow Rate 12/28/23 06:00 12/28/23 08:42 12/28/23 08:45 Temperature 97.4 F L Pulse Rate 96 90 Respiratory Rate 13 Blood Pressure 112/50 L 142/59 H Pulse Oximetry 95 97 Oxygen Delivery Room Air Oxygen Flow Rate Intake/Output Intake/Output: Intake & Output 12/25/23 12/26/23 12/27/23 12/28/23 23:59 23:59 23:59 23:59 Intake Total 590 1390 1054 Outpu
[2023-12-28] MEDS: HYDROmorphone HCL INJ (*CRX) 1 MG/ML SYR IV PUSH ×2 (15:07→20:23)
[2023-12-28 17:06] LABS: Glucose Point of Care 134 mg/dl (65-105)
[2023-12-28 20:00] VITALS: O2SAT 97
[2023-12-28] MEDS: SENNA/DOCUSATE SODIUM TABLET 1 TAB PO (20:23)
[2023-12-28 20:44] LABS: Glucose Point of Care 98 mg/dl (65-105)
[2023-12-28 21:17] VITALS: BP 152/71; PULSE 100; RESP 12; TEMP 37.2; O2SAT 97
[2023-12-29] MEDS: HYDROmorphone HCL INJ (*CRX) 1 MG/ML SYR IV PUSH ×5 (00:11→21:00)
[2023-12-29 05:29] VITALS: BP 133/66; PULSE 87; RESP 14; TEMP 36.1; O2SAT 97
[2023-12-29 06:34] LABS: Hematocrit 42.1 % (37.0-47.0); Hemoglobin 13.3 g/dL (12.0-15.0); Mean Corpuscular HGB Conc 31.6 g/dl (32-36); Mean Corpuscular Hemoglobin 30.6 pg (26-34); Mean Corpuscular Volume 96.8 fl (80-100); Platelet Count Result 172 k/mm3 (150-375); Red Blood Count 4.35 M/mm3 (4.2-5.4); Red Cell Distribution Width 12.7 % (11.5-14.5); White Blood Count 13.9 K/mm3 (4.5-10.0)
[2023-12-29 06:42] LABS: Anion Gap 1 mmol/L (8-16); Blood Urea Nitrogen 14 mg/dL (7-17); Calcium 9.3 mg/dL (8.4-10.2); Carbon Dioxide 34 mmol/L (22-30); Chloride 100 mmol/L (98-107); Estimated CRCL calculation 70 ml/min; Estimated Glomerular Filt Rate > 60; Glucose 73 mg/dL (65-110); Potassium 3.7 mmol/L (3.4-5.0); Sodium 135 mmol/L (137-145)
[2023-12-29] MEDS: HYDROcodone/acetaminophen (*CRX) 5-325 MG TABLET 1 TAB PO ×2 (08:03→15:08)
[2023-12-29] MEDS: ATORVASTATIN 20 MG TABLET PO (08:04)
[2023-12-29] MEDS: amLODIPine BESYLATE 5 MG TABLET PO (08:04)
[2023-12-29] MEDS: EMPAGLIFLOZIN 25 MG TABLET PO (08:04)
[2023-12-29] MEDS: CITALOPRAM HYDROBROMIDE 10 MG TABLET PO (08:04)
[2023-12-29] MEDS: glipiZIDE 5 MG TABLET 10 MG PO (08:04)
[2023-12-29] MEDS: LOSARTAN POTASSIUM 100 MG TABLET PO (08:04)
[2023-12-29] MEDS: methocarbamoL 750 MG TABLET PO ×3 (08:04→17:08)
[2023-12-29 08:07] LABS: Glucose Point of Care 55 mg/dl (65-105)
[2023-12-29] MEDS: ENOXAPARIN 40 MG/0.4 ML SYRINGE SUB-Q (09:59)
[2023-12-29 11:26] LABS: Glucose Point of Care 146 mg/dl (65-105)
--- NOTE | 2023-12-29 13:13 | WPDNEUROSGPN ---
Progress Note: A&P Assessment and Plan (1) Status post lumbar microdiscectomy: Code(s): Z98.890 - Other specified postprocedural states Status: Acute Assessment and Plan: S/p L3-4 laminectomy and diskectomy on 12/27 Plan: -Continue PT/OT therapies, she would benefit from inpatient rehab. SW following. - Okay to discharge from our standpoint once [facility] authorized and patient accepted -Ok to shower and get incision wet with soap and water starting today - We will follow peripherally and revisit with patient on Monday if still hospitalized. F/u in 6 weeks with us (will leave info in discharge tab) Okay for DVT ppx Maribeth WILKINSON Subjective Date/time seen: 12/29/23 13:13 Interval history: c/o expected post-op back pain/soreness. Does admit to feeling a little better today. No radicular pains. Ongoing distal left foot weakness. reports urinating w/o difficulty (has female external cath in place) since sauer was removed. Exam Narrative: GENERAL: The patient appears well-nourished, well-developed, and in no acute distress SKIN: lumbar incision is clean / dry / intact, dressing removed. Steri-strips intact NEUROLOGIC EXAMINATION: Mental status: Patient is awake, alert, and oriented to person place and time. Speech is clear and fluent. Motor: Left AT/EHL 1/5, left gastroc 2/5, right EHL 4-/5, all other motor groups are 5/5 Sensory: Sensation is intact to light touch Objective Data Vital Signs Vital Signs: Vital Signs - 24 hr 12/28/23 14:50 12/28/23 21:17 12/28/23 20:00 Temperature 99.0 F Pulse Rate 100 Respiratory Rate 12 Blood Pressure 152/71 H Pulse Oximetry 97 97 Oxygen Delivery Room Air Room Air 12/29/23 05:29 12/29/23 08:00 Temperature 96.9 F L Pulse Rate 87 Respiratory Rate 14 Blood Pressure 133/66 Pulse Oximetry 97 Oxygen Delivery Room Air Intake/Output Intake/Output: Intake & Output 12/26/23 12/27/23 12/28/23 12/29/23 23:59 23:59 23:59 23:59 Intake Total 590 1390 1294 1710 Output Total 200 1730 1700 500 Balance 390 340 -406 1210 Meds/Results Medications: Active Medications Generic Name Dose Route Start Last Admin Trade Name Freq PRN Reason Stop Dose Admin Acetaminophen 650 mg 12/26/23 16:56 Acetaminophen 325 Mg Tablet PO Q6H PRN Mild Pain (1-3) or Fever Hydrocodone Bitart/Acetaminophen 1 tab 12/26/23 16:57 12/29/23 08:03 Hydrocodone/Acetaminophen (*Crx) 5-325 Mg Tablet PO 1 tab Q6H PRN Administration Pain Rated 4-6 Amlodipine Besylate 5 mg 12/27/23 14:55 12/29/23 08:04 Amlodipine Besylate 5 Mg Tablet PO 5 mg DAILY OSITO Administration Atorvastatin Calcium 20 mg 12/28/23 09:00 12/29/23 08:04 Atorvastatin 20 Mg Tablet PO 20 mg DAILY OSITO Administration Citalopram Hydrobromide 10 mg 12/27/23 14:55 12/29/23 08:04 Citalopram Hydrobromide 10 Mg Tablet PO 10 mg DAILY OSITO Administration Empagliflozin 25 mg 12/28/23 09:00 12/29/23 08:04 Empagliflozin 25 Mg Tablet PO 25 mg DAILY OSITO Administration Enoxaparin Sodium 40 mg 12/29/23 09:00 12/29/23 09:59 Enoxaparin 40 Mg/0.4 Ml Syringe SUB-Q 40 mg DAILY OSITO Administration Glipizide 10 mg 12/28/23 09:00 12/29/23 08:04 Glipizide 5 Mg Tablet PO 10 mg DAILY OSITO Administration Glucagon 1 mg 12/26/23 16:57 Glucagon For Inj 1 Mg Vial IM PRN PRN Hypoglycemia Protocol Glucose 15 gm 12/26/23 16:57 Glucose Oral Gel 15 Gm Of Glucse In 37.5 Gm Tube PO PRN PRN Hypoglycemia Protocol Hydromorphone HCl 1 mg 12/28/23 13:37 12/29/23 12:31 Hydromorphone Hcl Inj (*Crx) 1 Mg/Ml Syr IV PUSH 1 mg Q4H PRN Administration Pain Rated 7-10 Insulin Aspart 3 - 6 units 12/26/23 17:00 12/29/23 12:38 Insulin Aspart (*Bkc) 100 Units/Ml SUB-Q Not Given TIDWM OSITO Protocol Insulin Aspart 1 - 3 units 12/26/23 21:00 /
[2023-12-29 14:30] VITALS: BP 104/54; PULSE 78; RESP 15; TEMP 35.9; O2SAT 96
--- NOTE | 2023-12-29 15:32 | PM.IMPN ---
Progress Note: A&P Assessment and Plan (1) Ground-level fall: Code(s): W18.30XA - Fall on same level, unspecified, initial encounter Status: Acute Assessment and Plan: Patient had a fall due to progressive lower extremity numbness and tingling. She was unable to ambulate safely in the emergency department and is being admitted for supportive care and neurosurgery consultation. Symptoms seem to be due to lumbar strain or sciatic up. Analgesics available as needed. CT of the thoracic and lumbar spine showing moderate degenerative spondylosis especially in L3-L4 and L4-L5 MRI of the lumbar spine showing severe spondylosis and severely decreased disc height at L4-L5 and L5-S1 Neurosurgery consulted. POD 2: L3 and L4 laminectomy and L3-L4 microdiscectomy Care coordination working on placement for the patient. Highly recommending rehab. (2) Back pain: Code(s): M54.9 - Dorsalgia, unspecified Status: Acute Assessment and Plan: See above. MRI of the lumbar spine showing severe spondylosis and severely decreased disc height at L4-L5 and L5-S1. Pain is better managed today. (3) Weakness: Code(s): R53.1 - Weakness Status: Acute Assessment and Plan: See above. (4) Type 2 diabetes mellitus: Code(s): E11.9 - Type 2 diabetes mellitus without complications Status: Acute Assessment and Plan: Insulin Lispro sliding scale, Accu-checks qAc and HS and Hold oral hypoglycemics Initiate hypoglycemic precautions (5) Hypertension: Code(s): I10 - Essential (primary) hypertension Status: Acute Assessment and Plan: continue home medication (6) Depression: Code(s): F32.A - Depression, unspecified Status: Acute Assessment and Plan: continue home medication (7) Status post lumbar microdiscectomy: Code(s): Z98.890 - Other specified postprocedural states Status: Acute Assessment and Plan: See above. Subjective Date/time seen: 12/29/23 15:32 Interval history: Patient's pain is improved today. She is up to the chair when in the room. She continues work with PT and OT. Discussed rehab with her. Care coordination working with patient in regards to getting placed. Exam Narrative: GENERAL: Comfortable, no acute distress HENMT: moist mucous membranes EYES: EOM intact b/l NECK: no lymphadenopathy RESPIRATORY: clear to auscultation CARDIO: RRR GI: soft, nontender, bowel sounds present SKIN: no rashes EXTREMITIES: decreased sensation the left foot 1-5 strength in the left foot and 3/5 in the right. No Babinski sign. Objective Data Vital Signs Vital Signs: Vital Signs - 24 hr 12/28/23 21:17 12/28/23 20:00 12/29/23 05:29 Temperature 99.0 F 96.9 F L Pulse Rate 100 87 Respiratory Rate 12 14 Blood Pressure 152/71 H 133/66 Pulse Oximetry 97 97 97 Oxygen Delivery Room Air 12/29/23 08:00 12/29/23 08:00 12/29/23 14:30 Temperature 96.6 F L Pulse Rate 78 Respiratory Rate 15 Blood Pressure 104/54 L Pulse Oximetry 96 Oxygen Delivery Room Air Room Air Intake/Output Intake/Output: Intake & Output 12/26/23 12/27/23 12/28/23 12/29/23 23:59 23:59 23:59 23:59 Intake Total 590 1390 1294 1932 Output Total 200 1730 1700 500 Balance 390 -340 -406 1432 Meds/Results Medications: Active Medications Generic Name Dose Route Start Last Admin Trade Name Freq PRN Reason Stop Dose Admin Acetaminophen 650 mg 12/26/23 16:56 Acetaminophen 325 Mg Tablet PO Q6H PRN Mild Pain (1-3) or Fever Hydrocodone Bitart/Acetaminophen 1 tab 12/26/23 16:57 12/29/23 15:08 Hydrocodone/Acetaminophen (*Crx) 5-325 Mg Tablet PO 1 tab Q6H PRN Administration Pain Rated 4-6 Amlodipine Besylate 5 mg 12/27/23 14:55 12/29/23 08:04 Amlodipine Besylate 5 Mg Tablet PO 5 mg DAILY OSITO Administration Atorva
[2023-12-29 16:24] LABS: Glucose Point of Care 76 mg/dl (65-105)
[2023-12-29 20:00] VITALS: O2SAT 96
[2023-12-29 20:36] LABS: Glucose Point of Care 150 mg/dl (65-105)
[2023-12-29] MEDS: SENNA/DOCUSATE SODIUM TABLET 1 TAB PO (21:00)
[2023-12-29 21:01] VITALS: BP 113/73; PULSE 85; RESP 16; TEMP 36.3; O2SAT 100
[2023-12-30] MEDS: HYDROmorphone HCL INJ (*CRX) 1 MG/ML SYR IV PUSH ×5 (03:28→23:30)
[2023-12-30 04:55] VITALS: BP 128/50; PULSE 89; RESP 16; TEMP 36.3; O2SAT 98
[2023-12-30 08:24] LABS: Glucose Point of Care 67 mg/dl (65-105)
[2023-12-30] MEDS: glipiZIDE 5 MG TABLET 10 MG PO (08:55)
[2023-12-30] MEDS: CITALOPRAM HYDROBROMIDE 10 MG TABLET PO (08:55)
[2023-12-30] MEDS: EMPAGLIFLOZIN 25 MG TABLET PO (08:55)
[2023-12-30] MEDS: amLODIPine BESYLATE 5 MG TABLET PO (08:55)
[2023-12-30] MEDS: LOSARTAN POTASSIUM 100 MG TABLET PO (08:55)
[2023-12-30] MEDS: methocarbamoL 750 MG TABLET PO ×3 (08:55→17:27)
[2023-12-30] MEDS: ENOXAPARIN 40 MG/0.4 ML SYRINGE SUB-Q (08:55)
[2023-12-30] MEDS: ATORVASTATIN 20 MG TABLET PO (08:55)
[2023-12-30 08:59] VITALS: BP 115/49
--- NOTE | 2023-12-30 09:21 | PCOTNOTE ---
The patient treatment was not able to be completed patient just got her breakfast. Patient was eager to share she can move her feet more today. Will plan to continue treatment per plan of care.
[2023-12-30 12:59] LABS: Glucose Point of Care 131 mg/dl (65-105)
--- NOTE | 2023-12-30 13:05 | PM.IMPN ---
Progress Note: A&P Assessment and Plan (1) Ground-level fall: Code(s): W18.30XA - Fall on same level, unspecified, initial encounter Status: Acute Assessment and Plan: Patient had a fall due to progressive lower extremity numbness and tingling. She was unable to ambulate safely in the emergency department and is being admitted for supportive care and neurosurgery consultation. Symptoms seem to be due to lumbar strain or sciatic up. Analgesics available as needed. CT of the thoracic and lumbar spine showing moderate degenerative spondylosis especially in L3-L4 and L4-L5 MRI of the lumbar spine showing severe spondylosis and severely decreased disc height at L4-L5 and L5-S1 Neurosurgery consulted. POD 2: L3 and L4 laminectomy and L3-L4 microdiscectomy Care coordination working on placement for the patient. Highly recommending rehab. (2) Back pain: Code(s): M54.9 - Dorsalgia, unspecified Status: Acute Assessment and Plan: See above. MRI of the lumbar spine showing severe spondylosis and severely decreased disc height at L4-L5 and L5-S1. Pain is better managed today. (3) Weakness: Code(s): R53.1 - Weakness Status: Acute Assessment and Plan: See above. (4) Type 2 diabetes mellitus: Code(s): E11.9 - Type 2 diabetes mellitus without complications Status: Acute Assessment and Plan: Insulin Lispro sliding scale, Accu-checks qAc and HS and Hold oral hypoglycemics Initiate hypoglycemic precautions (5) Hypertension: Code(s): I10 - Essential (primary) hypertension Status: Acute Assessment and Plan: continue home medication (6) Depression: Code(s): F32.A - Depression, unspecified Status: Acute Assessment and Plan: continue home medication (7) Status post lumbar microdiscectomy: Code(s): Z98.890 - Other specified postprocedural states Status: Acute Assessment and Plan: See above. Subjective Date/time seen: 12/30/23 13:05 Interval history: Patient's movement is improving. She is able to wiggle her toes in the left foot and has 4-5 strength in the right foot. Her pain is improved. She is waiting for placement. Insurance authorization pending. Exam Narrative: GENERAL: Comfortable, no acute distress HENMT: moist mucous membranes EYES: EOM intact b/l NECK: no lymphadenopathy RESPIRATORY: clear to auscultation CARDIO: RRR GI: soft, nontender, bowel sounds present SKIN: no rashes EXTREMITIES: decreased sensation the left foot, 2/5 strength in the left foot and 4/5 in the right. No Babinski sign. Objective Data Vital Signs Vital Signs: Vital Signs - 24 hr 12/29/23 14:30 12/29/23 20:00 12/29/23 21:01 Temperature 96.6 F L 97.3 F L Pulse Rate 78 85 Respiratory Rate 15 16 Blood Pressure 104/54 L 113/73 Pulse Oximetry 96 96 100 Oxygen Delivery Room Air 12/30/23 04:55 12/30/23 08:59 12/30/23 08:50 Temperature 97.4 F L Pulse Rate 89 Respiratory Rate 16 Blood Pressure 128/50 L 115/49 L Pulse Oximetry 98 Oxygen Delivery Room Air Intake/Output Intake/Output: Intake & Output 12/27/23 12/28/23 12/29/23 12/30/23 23:59 23:59 23:59 23:59 Intake Total 1390 1294 2772 Output Total 1730 1700 900 300 Balance -340 -406 1872 -300 Meds/Results Medications: Active Medications Generic Name Dose Route Start Last Admin Trade Name Freq PRN Reason Stop Dose Admin Acetaminophen 650 mg 12/26/23 16:56 Acetaminophen 325 Mg Tablet PO Q6H PRN Mild Pain (1-3) or Fever Hydrocodone Bitart/Acetaminophen 1 tab 12/26/23 16:57 12/29/23 15:08 Hydrocodone/Acetaminophen (*Crx) 5-325 Mg Tablet PO 1 tab Q6H PRN Administration Pain Rated 4-6 Amlodipine Besylate 5 mg 12/27/23 14:55 12/30/23 08:55 Amlodipine Besylate 5 Mg Tablet PO 5 mg DAILY OSITO Administration At
[2023-12-30 14:55] VITALS: BP 148/74; PULSE 95; RESP 12; TEMP 37.5; O2SAT 95
[2023-12-30] MEDS: HYDROcodone/acetaminophen (*CRX) 5-325 MG TABLET 1 TAB PO (17:28)
[2023-12-30 17:38] LABS: Glucose Point of Care 97 mg/dl (65-105)
[2023-12-30 20:00] VITALS: PULSE 84; RESP 16; O2SAT 97
[2023-12-30 20:12] VITALS: BP 111/48; PULSE 84; RESP 16; TEMP 36.3; O2SAT 97
[2023-12-30 20:45] LABS: Glucose Point of Care 121 mg/dl (65-105)
[2023-12-30] MEDS: SENNA/DOCUSATE SODIUM TABLET 1 TAB PO (21:00)
[2023-12-31 04:32] VITALS: BP 136/73; PULSE 94; RESP 18; TEMP 36.1; O2SAT 97
[2023-12-31 06:05] LABS: Hematocrit 41.9 % (37.0-47.0); Hemoglobin 12.9 g/dL (12.0-15.0); Mean Corpuscular HGB Conc 30.8 g/dl (32-36); Mean Corpuscular Hemoglobin 29.7 pg (26-34); Mean Corpuscular Volume 96.3 fl (80-100); Mean Platelet Volume 9.1 fl (7.4-10.4); Platelet Count Result 193 k/mm3 (150-375); Red Blood Count 4.35 M/mm3 (4.2-5.4); Red Cell Distribution Width 12.5 % (11.5-14.5); White Blood Count 10.4 K/mm3 (4.5-10.0)
[2023-12-31 06:23] LABS: Anion Gap 3 mmol/L (8-16); Blood Urea Nitrogen 11 mg/dL (7-17); Carbon Dioxide 34 mmol/L (22-30); Chloride 98 mmol/L (98-107); Estimated CRCL calculation 82 ml/min; Estimated Glomerular Filt Rate > 60; Glucose 81 mg/dL (65-110); Potassium 3.8 mmol/L (3.4-5.0); Sodium 135 mmol/L (137-145)
[2023-12-31 07:48] LABS: Glucose Point of Care 81 mg/dl (65-105)
[2023-12-31] MEDS: LOSARTAN POTASSIUM 100 MG TABLET PO (08:50)
[2023-12-31] MEDS: amLODIPine BESYLATE 5 MG TABLET PO (08:50)
[2023-12-31] MEDS: HYDROmorphone HCL INJ (*CRX) 1 MG/ML SYR IV PUSH ×2 (08:50→18:31)
[2023-12-31] MEDS: CITALOPRAM HYDROBROMIDE 10 MG TABLET PO (08:51)
[2023-12-31] MEDS: EMPAGLIFLOZIN 25 MG TABLET PO (08:51)
[2023-12-31] MEDS: glipiZIDE 5 MG TABLET 10 MG PO (08:51)
[2023-12-31] MEDS: ATORVASTATIN 20 MG TABLET PO (08:51)
[2023-12-31] MEDS: methocarbamoL 750 MG TABLET PO ×3 (08:51→16:26)
[2023-12-31] MEDS: ENOXAPARIN 40 MG/0.4 ML SYRINGE SUB-Q (10:29)
[2023-12-31] MEDS: HYDROcodone/acetaminophen (*CRX) 5-325 MG TABLET 1 TAB PO ×2 (10:29→16:27)
[2023-12-31 11:17] LABS: Glucose Point of Care 136 mg/dl (65-105)
--- NOTE | 2023-12-31 14:37 | PM.IMPN ---
Progress Note: A&P Assessment and Plan (1) Ground-level fall: Code(s): W18.30XA - Fall on same level, unspecified, initial encounter Status: Acute Assessment and Plan: Patient had a fall due to progressive lower extremity numbness and tingling. She was unable to ambulate safely in the emergency department and is being admitted for supportive care and neurosurgery consultation. Symptoms seem to be due to lumbar strain or sciatic up. Analgesics available as needed. CT of the thoracic and lumbar spine showing moderate degenerative spondylosis especially in L3-L4 and L4-L5 MRI of the lumbar spine showing severe spondylosis and severely decreased disc height at L4-L5 and L5-S1 Neurosurgery consulted. POD 3: L3 and L4 laminectomy and L3-L4 microdiscectomy Care coordination working on placement for the patient. Highly recommending rehab. (2) Back pain: Code(s): M54.9 - Dorsalgia, unspecified Status: Acute Assessment and Plan: See above. MRI of the lumbar spine showing severe spondylosis and severely decreased disc height at L4-L5 and L5-S1. Pain is better managed today. (3) Weakness: Code(s): R53.1 - Weakness Status: Acute Assessment and Plan: See above. (4) Type 2 diabetes mellitus: Code(s): E11.9 - Type 2 diabetes mellitus without complications Status: Acute Assessment and Plan: Insulin Lispro sliding scale, Accu-checks qAc and HS and Hold oral hypoglycemics Initiate hypoglycemic precautions (5) Hypertension: Code(s): I10 - Essential (primary) hypertension Status: Acute Assessment and Plan: continue home medication (6) Depression: Code(s): F32.A - Depression, unspecified Status: Acute Assessment and Plan: continue home medication (7) Status post lumbar microdiscectomy: Code(s): Z98.890 - Other specified postprocedural states Status: Acute Assessment and Plan: See above. Subjective Date/time seen: 12/31/23 14:37 Interval history: Patient's movement and strength in her lower extremities are improving every day. She continues work with PT and OT. Waiting to hear back from her insurance as far is rehab goes. Will continue to monitor. Exam Narrative: GENERAL: Comfortable, no acute distress HENMT: moist mucous membranes EYES: EOM intact b/l NECK: no lymphadenopathy RESPIRATORY: clear to auscultation CARDIO: RRR GI: soft, nontender, bowel sounds present SKIN: no rashes EXTREMITIES: 2/5 strength in the left foot and 4/5 in the right. No Babinski sign. Objective Data Vital Signs Vital Signs: Vital Signs - 24 hr 12/30/23 14:55 12/30/23 20:12 12/30/23 20:00 Temperature 99.5 F 97.3 F L Pulse Rate 95 84 84 Respiratory Rate 12 16 16 Blood Pressure 148/74 H 111/48 L Pulse Oximetry 95 97 97 Oxygen Delivery Room Air 12/31/23 04:32 12/31/23 08:50 Temperature 97 F L Pulse Rate 94 Respiratory Rate 18 Blood Pressure 136/73 Pulse Oximetry 97 Oxygen Delivery Room Air Intake/Output Intake/Output: Intake & Output 12/28/23 12/29/23 12/30/23 12/31/23 23:59 23:59 23:59 23:59 Intake Total 1294 2772 440 340 Output Total 1700 900 600 750 Balance -406 1872 -160 -410 Meds/Results Medications: Active Medications Generic Name Dose Route Start Last Admin Trade Name Freq PRN Reason Stop Dose Admin Acetaminophen 650 mg 12/26/23 16:56 Acetaminophen 325 Mg Tablet PO Q6H PRN Mild Pain (1-3) or Fever Hydrocodone Bitart/Acetaminophen 1 tab 12/26/23 16:57 12/31/23 10:29 Hydrocodone/Acetaminophen (*Crx) 5-325 Mg Tablet PO 1 tab Q6H PRN Administration Pain Rated 4-6 Amlodipine Besylate 5 mg 12/27/23 14:55 12/31/23 08:50 Amlodipine Besylate 5 Mg Tablet PO 5 mg DAILY OSITO Administration Atorvastatin Calcium 20 mg 12/28/23 09:00 12/31/23 08:51 Atorva
[2023-12-31 16:48] LABS: Glucose Point of Care 80 mg/dl (65-105)
--- NOTE | 2023-12-31 18:35 | PC.NURSE ---
Per nurse request, patient was given IV pain medication for her post surgical back pain. Patient oriented x4. Call light in patients hand. Room temperature concerns addressed.
[2023-12-31 20:03] VITALS: BP 100/63; PULSE 86; RESP 16; TEMP 36.4; O2SAT 97
[2023-12-31 20:49] LABS: Glucose Point of Care 112 mg/dl (65-105)
[2023-12-31] MEDS: SENNA/DOCUSATE SODIUM TABLET 1 TAB PO (22:07)
[2023-12-31] MEDS: MELATONIN 5 MG TABLET PO (22:07)
[2024-01-01 04:43] VITALS: BP 101/45; PULSE 80; RESP 16; TEMP 36.2; O2SAT 97
[2024-01-01] MEDS: HYDROcodone/acetaminophen (*CRX) 5-325 MG TABLET 1 TAB PO ×2 (06:41→17:09)
[2024-01-01 07:50] LABS: Glucose Point of Care 93 mg/dl (65-105)
[2024-01-01] MEDS: HYDROmorphone HCL INJ (*CRX) 1 MG/ML SYR IV PUSH (08:00)
[2024-01-01] MEDS: ENOXAPARIN 40 MG/0.4 ML SYRINGE SUB-Q (10:08)
[2024-01-01] MEDS: EMPAGLIFLOZIN 25 MG TABLET PO (10:08)
[2024-01-01] MEDS: amLODIPine BESYLATE 5 MG TABLET PO (10:08)
[2024-01-01] MEDS: ATORVASTATIN 20 MG TABLET PO (10:08)
[2024-01-01] MEDS: LOSARTAN POTASSIUM 100 MG TABLET PO (10:08)
[2024-01-01] MEDS: CITALOPRAM HYDROBROMIDE 10 MG TABLET PO (10:08)
[2024-01-01] MEDS: methocarbamoL 750 MG TABLET PO ×3 (10:08→17:09)
[2024-01-01] MEDS: glipiZIDE 5 MG TABLET 10 MG PO (10:08)
[2024-01-01 11:48] LABS: Glucose Point of Care 140 mg/dl (65-105)
--- NOTE | 2024-01-01 12:41 | PM.DS ---
DS: Admitting Diagnosis Discharge Date 01/01/24 Admitting Diagnosis Severe L3-L4 central canal stenosis, left footdrop, large L3-L4 disc herniation DS: Discharge Diagnosis Discharge Diagnosis (1) Ground-level fall: Code(s): W18.30XA - Fall on same level, unspecified, initial encounter Status: Acute Assessment and Plan: Patient had a fall due to progressive lower extremity numbness and tingling. She was unable to ambulate safely in the emergency department and is being admitted for supportive care and neurosurgery consultation. Symptoms seem to be due to lumbar strain or sciatic up. Analgesics available as needed. CT of the thoracic and lumbar spine showing moderate degenerative spondylosis especially in L3-L4 and L4-L5 MRI of the lumbar spine showing severe spondylosis and severely decreased disc height at L4-L5 and L5-S1 Neurosurgery consulted. POD 3: L3 and L4 laminectomy and L3-L4 microdiscectomy Care coordination working on placement for the patient. Highly recommending rehab. (2) Back pain: Code(s): M54.9 - Dorsalgia, unspecified Status: Acute Assessment and Plan: See above. MRI of the lumbar spine showing severe spondylosis and severely decreased disc height at L4-L5 and L5-S1. Pain is better managed today. (3) Weakness: Code(s): R53.1 - Weakness Status: Acute Assessment and Plan: See above. (4) Type 2 diabetes mellitus: Code(s): E11.9 - Type 2 diabetes mellitus without complications Status: Acute Assessment and Plan: Insulin Lispro sliding scale, Accu-checks qAc and HS and Hold oral hypoglycemics Initiate hypoglycemic precautions (5) Hypertension: Code(s): I10 - Essential (primary) hypertension Status: Acute Assessment and Plan: continue home medication (6) Depression: Code(s): F32.A - Depression, unspecified Status: Acute Assessment and Plan: continue home medication (7) Status post lumbar microdiscectomy: Code(s): Z98.890 - Other specified postprocedural states Status: Acute Assessment and Plan: See above. DS: Summary Hospital Course Hospital Course: This is a 70-year-old female with past medical history of hypertension, hyperlipidemia, uncontrolled diabetes, obesity and depression the present to the ED on 12/26/2023 for evaluation of low back pain and difficulties with ambulation. Patient had been experiencing low back pain and lower extremity weakness/ difficulty ambulating 3-4 days prior to ED presentation. Patient had experienced a fall due to this that led to her coming to the ED. she denied have any syncope, chest pain, shortness a breath, nausea, vomiting, diarrhea, urinary retention, bladder incontinence, saddle anesthesia, vertigo, facial droop or difficulty speaking and swallowing. She did have some numbness and tingling in the left lower extremity. Thoracic and lumbar spine CT showed no acute fractures, degenerative changes with spondylosis especially at L3-L4 and L4-L5,, and minimal grade 1 retrolisthesis of L2 over L3 and of L3 over L4. X-ray of the sacrum and coccyx showed no acute displaced is osseous abnormalities and severe lower lumbar spondylosis. neurosurgery consulted. MRI?shows a large left paracentral disc herniation at L3-4? with inferior migration causing severe lateral stenosis and central stenosis due to superimposing lumbar spondylosis from facet hypertrophy and thickened? ligamentum flavum. patient had very little movement in her left foot and had 0/5 strength. Bladder scan was performed which showed that patient was retaining her urine. Neurosurgery performed a inferior bilateral L3 laminectomy, superior bilateral L4 laminectomy and a left 3-4 micro diskectomy. Patient received PT and OT postoperatively. Patient did have some issues with pain control but it after about a day she was doing bett
[2024-01-01 14:16] VITALS: BP 139/62; PULSE 95; TEMP 35.6; O2SAT 97
[2024-01-01 16:15] LABS: Glucose Point of Care 67 mg/dl (65-105)
[2024-01-01 16:40] LABS: Glucose Point of Care 61 mg/dl (65-105)
[2024-01-01 16:44] LABS: Glucose Point of Care 136 mg/dl (65-105)
[2024-01-01] MEDS: SENNA/DOCUSATE SODIUM TABLET 1 TAB PO (20:28)
[2024-01-01 23:13] LABS: Glucose Point of Care 84 mg/dl (65-105)
== END 2024-01-01 23:55 | DRG 30 ==
LOC: ANHED 11:35 → ANH3MEDSUR 15:59
PROVIDERS: Neurological Surgery; Physician Assistant; Admitting Provider Internal Medicine; Emergency Provider Emergency Medicine; PCP Family Medicine; Visit Provider Internal Medicine Critical Care Medicine
PROC: 01NB0ZZ Release Lumbar Nerve, Open Approach (ICD-10-PCS; CPT 63005; principal; 2023-12-27 14:30)
DX: G83.4 Cauda equina syndrome (principal); M48.061 Spinal stenosis, lumbar region without neurogenic claudication; M51.26 Other intervertebral disc displacement, lumbar region; M47.816 Spondylosis without myelopathy or radiculopathy, lumbar region; M21.372 Foot drop, left foot; W18.30XA Fall on same level, unspecified, initial encounter; I10 Essential (primary) hypertension; E78.5 Hyperlipidemia, unspecified; E11.9 Type 2 diabetes mellitus without complications; F32.A Depression, unspecified; R33.9 Retention of urine, unspecified; E66.9 Obesity, unspecified; Z68.37 Body mass index [BMI] 37.0-37.9, adult; Z90.49 Acquired absence of other specified parts of digestive tract; Z90.710 Acquired absence of both cervix and uterus; Z87.891 Personal history of nicotine dependence
CPT/HCPCS: 36415; 70450; 70486; 72125; 72128; 72131; 72158; 72220; 80048; 80053; 81001; 82948; 83735; 85025; 85027; 85610; 85730; 87086; 96361; 96365; 96372; 96375; 97110; 97116; 97161; 97165; 97530; 97535; 99199; 99285; A9270; A9577; G0378; J0690; J0696; J1100; J1170; J1650; J1815; J1885; J2250; J2371; J2405; J2704; J3010; J3370; J7120